=== PATIENT | male | born 1955 | race Caucasian/White ===

== ENCOUNTER 2017-06-25 12:00 | Inpatient (IN) | payer BC, SELFPAY ==
[2017-06-14 15:09] VITALS: BP 139/66; PULSE 86; RESP 18; TEMP 37.3; O2SAT 97; BMI 48.5
[2017-06-14 16:08] LABS: Hematocrit 46.3 % (40-54); Hemoglobin 15.3 g/dl (13.0-16.5); Mean Corpuscular Hgb 29.2 pg (27.0-32.0); Mean Corpuscular Volume 88.4 fL (80-94); Mean Platelet Vol. 10.3 fl (6.2-12.0); Platelet Count 243 K/mm3 (150-450); RBC Distribution Width CV 15.2 % (11.6-14.6); RBC Distribution Width SD 49.3 fl (35.1-43.9); Red Blood Count 5.24 M/mm3 (4.6-6.2); White Blood Count 8.6 K/mm3 (4.4-11.0)
[2017-06-14 16:13] LABS: Scan Indicated on CBC? Y/N NO
[2017-06-14 16:17] LABS: Anion Gap 8 (5-15); BUN 18 mg/dL (7-18); BUN/Creat Ratio 12.9 RATIO (10-20); Calcium,Total 8.8 mg/dL (8.5-10.1); Chloride 101 mmol/L (98-107); Creatinine, Serum 1.39 mg/dL (0.70-1.30); EST Glomerular Filtration Rate 55 mL/min (>60); Est Glom Filt Rate - Afr Amer 67 mL/min (>60); Estimated Creatinine Clearance 58.35 ml/min; Glucose 115 mg/dL (70-110); Potassium 3.9 mmol/L (3.5-5.1); Sodium Level 138 mmol/L (136-145)
[2017-06-25] VITALS (12 sets, daily range): BP systolic 110–169; BP diastolic 67–93; PULSE 62–82; RESP 16–18; TEMP 36.4–36.9; O2SAT 94–97; BMI 48.5; BMI 47.2
[2017-06-25] MEDS: oxyCODONE HCl Cr 10 MG Tablet 20 MG PO (08:15)
[2017-06-25] MEDS: Acetaminophen 500 MG Tablet 1000 MG PO ×3 (08:15→21:57)
[2017-06-25] MEDS: Celecoxib 200 MG Capsule 400 MG PO (08:16)
[2017-06-25] MEDS: Scopolamine 1mg/72hr Patch 1 PATCH TD (12:00)
--- NOTE | 2017-06-25 13:06 | RAD_ITS ---
STUDY: X-RAY - LEFT KNEE REASON FOR EXAM: Male, 62 years old. Postop. TECHNIQUE: 3 view(s) of the knee. COMPARISON: None. FINDINGS: There is a total knee replacement. The prosthetic components are intact and articulate normally with each other. There is no evidence of loosening from the underlying bone. There is no evidence of osseous fracture or destructive osseous pathology. There is air and swelling in the anterior soft tissues with midline skin clips. RAD/Knee 1 or 2 Views IMPRESSION: Status post left TKA. Electronically Signed: Yoav Mcclain DO at 13:21 EST Tel [phone], Service support ,
[2017-06-25] MEDS: Lactated Ringers 1,000 ML 125 ML IV ×2 (13:29→20:12)
--- NOTE | 2017-06-25 14:01 | PCM.OPRPT ---
Report of Operation Date of Procedure: 06/25/17 Pre-Operative Diagnosis: Failure of unicompartmental knee arthroplasty left. Osteoarthritis left knee Post-Operative Diagnosis: Same Surgery/Procedure Performed:: Removal of unicompartmental knee arthroplasty and conversion to total knee replacement left Description of Surgical Findings:: Failure of lateral compartment, periarticular osteophytes and eburnation of bone equipment maintenance superintendent: Jhonny Alonso Type of Anesthesia:: Spinal Anesthesiologist: Elan Manriquez Special Medications: TXA Specimen's removed: Bone and soft tissue, uni-knee compartmental arthroplasty Estimated Blood Loss (mL): 100 Fluids Replaced: See anesthesia report Description of Procedure: Implants: Daniella triathlon size 6 cruciate retaining femur, 6 tibia, 35 x 10 mm patella cemented with Simplex, 9 mm cruciate retaining articulating surface Indications: Melvin had undergone a unicompartmental knee arthroplasty last year. He has never done really well terms of his pain relief and x-rays do reveal he has significant lateral compartmental joint space narrowing and lateral osteoarthritis. He has elected to undergo a revision as above Procedure description: The patient was greeted in the preoperative area. The [ ] knee was then marked with a surgical marker. Patient was then taken to or Suite [address]. They were administered a dose of antibiotics as well as tranexamic acid. Once adequate anesthesia was obtained and airway was secured to placed in supine position on the operating room table. A well-padded tourniquet was placed on the affected extremity. Leg was then prepped and draped in the usual sterile fashion from the knee down. Ioban was used on the skin. Surgical timeout was then performed and confirmed with all present. Six-inch Esmarch was used to examine the limb and tourniquet was then inflated to 250 mmHg. A longitudinal incision was then planned and carried out in the anterior aspect of the knee. The dissection was then carried the length of the incision the extensor mechanism was identified. Standard medial parapatellar arthrotomy was then performed revealing severe eburnation of bone and periarticular osteophytes in the lateral compartment. A unicompartmental knee arthroplasty is noted in the medial aspect. Anterior fat pad was removed for visualization purposes and the anterior medial aspect of the tibia was skeletonized for exposure to the knee. The knee was then flexed the patella was inverted. Opening reamer was then used in the femur approximately 1 cm anterior to the attachment of the PCL. The intramedullary valgus wand was then placed in the femur set at 5? of valgus. The distal femoral cutting jig was then applied to the femur with anticipated resection of approximately 8 mm. The distal femoral cut was then created for the lateral aspect. I did start the medial sided cut this was stopped when the pegs were encountered. The medial femoral component was then removed with flexible osteotomes. The sizing guide was then placed referencing off the posterior condyles and also reference off the epicondylar axis. This was measured and the appropriate size 4-in-1 cutting jig was then applied to the distal femur. Anterior posterior cuts were made followed by the anterior and posterior chamfer cuts. These bony pieces and fragments were removed and placed on the back table. Posterior retractor was then utilized and the tibia was subluxed anteriorly. Extramedullary tibial alignment jig was then applied to the tibia referencing off the medial one third of the tibial tubercle the anterior tibial spine the middle aspect of the tibiotalar joint. Also reference off patient's hamilton slope. The tibial cutting jig was then pinned with anticipated resection of 9 mm mm off of the lateral tibial condyle. Prior to making this cut the medial tibial component was then removed with flexible osteotomes. This cut was made with the oscillating saw. Once this was complete a laminar repairer veneer sheet was utilized in both medial lateral meniscus were removed and a posterior capsular osteophytes were also removed. Posterior capsule release was performed in the posterior capsule as well as the geniculate arteries are treated with the aqua Abby. The tibia was incised and the appropriate sized tibial tray was then pinned. The femoral trial was then placed and the knee was trialed. Full flexion-extension were easily achieved. The knee seemed to balance quite nicely. Any remaining osteophytes were removed at this time. Once this was complete the patella was everted and the Luis Alberto patella reaming device was then utilized the patella was then placed in the appropriate jig and reamer was then used to remove approximately 9 mm of the undersurface of the patella. A soft tissue remaining was in the way was removed and patella trial was then placed listed maintain excellent tracking using the no thumbs technique. The tibial tray at this point was punched to accommodate the fins of the final implant. At this point cement was mixed on the back table. The trial components were removed and the knee was copiously irrigated. Did use a cocktail of injection for postoperative pain control. The final components were then cemented in the standard fashion and excess cement was removed with cement removal tools and patellar clamp is placed in the patella. As the cement had cured in full extension tourniquet was deflated and hemostasis was perfect with Bovie cautery as well as the aqua Manus. Needle is once again trialed with different size polyethylenes to ensure the full range of motion was achieved as well as excellent balancing ligamentously was achieved. The knee was copiously irrigated. Final implant was then inserted locking mechanism was engaged and confirmed to be locked. The arthrotomy was then closed with 5 Ethibond aggravate type fashion interrupted. Subcutaneous tissue was closed with 0 Vicryl and surgical lizandro were placed in the skin. A occlusive silver impregnated dressing was then applied followed by well-padded sterile dressing secured with an Terry wrap. The patient was taken to the PACU in stable condition. No complications known at this time. Postoperatively we will maintain standard total knee postoperative protocol. The use of the physician senior care assistant was integral during this procedure. They assisted with positioning placement of the tourniquet retracting closure and placement of the dressing. The procedure would have been much more difficult without their expertise and assistance - Admit VTE Documentation VTE Present on Admission: Yes VTE Mechan Device Prophylaxis: SCD's, Thigh High EMILY Hose VTE Pharm Prophylaxis ordered?: Yes
[2017-06-25] MEDS: oxyCODONE 5 MG Tablet PO ×2 (15:53→20:11)
[2017-06-25] MEDS: CLARIFY ORDER 1 EACH NOTE (16:15)
[2017-06-25] MEDS: Gabapentin 600 MG Tablet PO (17:50)
[2017-06-25] MEDS: Cefazolin 1 GM/50 ML BAG IV (17:51)
[2017-06-25] MEDS: Senna/Docusate Sodium 1 Tablet 2 TABLET PO (21:58)
[2017-06-26] MEDS: Cefazolin 1 GM/50 ML BAG IV (02:26)
[2017-06-26] MEDS: oxyCODONE 5 MG Tablet PO ×4 (02:32→17:56)
[2017-06-26] MEDS: Ketorolac 15 MG/ML Vial IV ×2 (02:32→17:57)
[2017-06-26 02:45] VITALS: BP 135/69; PULSE 100; RESP 20; TEMP 36.8; O2SAT 97
[2017-06-26] MEDS: Acetaminophen 500 MG Tablet 1000 MG PO ×3 (07:09→22:01)
--- NOTE | 2017-06-26 07:57 | PCM.PN.ORT ---
Subjective: Patient sitting at bedside eating breakfast, pain well-managed. Patient has no other complaints. Patient denies chest pain, shortness of breath, calf pain, nausea vomiting. Objective: Dressing is clean dry intact. Vital signs labs within normal limits. Patient is afebrile, neurovascular is intact. Negative signs and symptoms of DVT. No respiratory distress - Physical Exam General: Alert, Oriented x3, Cooperative HEENT: PERRLA Oral: Moist Mucosa Neurological: Cranial nerves II-XII grossly intact Psych/Mental Status: Normal Affect, Alert and oriented to time, place, person, mood and affect Vital Signs Temp Pulse Resp BP Pulse Ox 98.2 F 100 20 H 135/69 H 97 06/26/17 02:45 06/26/17 02:45 06/26/17 02:45 06/26/17 02:45 06/26/17 02:45 Oxygen Delivery Method Room Air Weight: 153.5 kg Body Mass Index (BMI) 47.2 Intake and Output for Last 24 Hours 06/24/17 06/25/17 06/26/17 23:59 23:59 23:59 Intake Total 2655 / 2655 2057 Balance 2655 / 2655 2057 Assessment/Plan Status post revision unicompartmental knee to a left total knee Plan 1. Continue all pain medications as prescribed 2. Begin physical therapy today, weight-bear as tolerated with walker. 3. Continue preop Xarelto, and aspirin 85 mg as prescribed for postop DVT prophylaxis 4. Encourage incentive spirometry 5. Possible discharge home tomorrow
[2017-06-26 08:00] VITALS: BP 147/86; PULSE 98; RESP 18; TEMP 37.8; O2SAT 95
[2017-06-26] MEDS: Gabapentin 600 MG Tablet PO ×3 (08:02→17:49)
[2017-06-26] MEDS: Folic Acid 1 MG Tablet PO (08:02)
[2017-06-26] MEDS: Aspirin 81 MG TAB.CHEW PO (08:02)
[2017-06-26] MEDS: Multivitamins,Therapeutic Tablet 1 TABLET PO (08:02)
[2017-06-26] MEDS: hydroCHLOROthiazide 25 MG Tablet PO (09:50)
[2017-06-26] MEDS: Famotidine 20 MG Tablet PO (09:51)
[2017-06-26] MEDS: amLODIPine 5 MG Tablet PO (09:51)
[2017-06-26] MEDS: Senna/Docusate Sodium 1 Tablet 2 TABLET PO ×2 (09:51→22:01)
[2017-06-26] MEDS: Lisinopril 20 MG Tablet PO (09:51)
[2017-06-26 09:55] VITALS: PULSE 88
[2017-06-26] MEDS: Rivaroxaban 20 MG Tablet PO (10:02)
[2017-06-26 14:00] VITALS: BP 122/67; PULSE 97; RESP 18; TEMP 38.2; O2SAT 95
--- NOTE | 2017-06-26 16:20 | CASEMGMT ---
IGLESIA BAILON Face to Face with patient for initial transition planning/care coordination assessment. RN UVALDO introduced self and role at [facility]. Patient lying in bed, alert and oriented. Patient willing to participate in assessment and is able to answer all questions appropriately. Care providers, pharmacy, and demographics verified. See link attached. Patient wishes to discharge home with outpatient at [facility]. Patient states that his will be providing transporation. Patient states he has no further needs or concerns at this time. CM to follow for discharge planning needs that may arise. Disposition Plan: Patient to discharge home with outpatient therapy, family support, and follow-up plans in place.
[2017-06-26] MEDS: 0.9% NaCl Peripheral Flush Adult/Peds IV (17:56)
[2017-06-26 21:48] VITALS: BP 125/55; PULSE 80; RESP 16; TEMP 36.8; O2SAT 93
[2017-06-27 02:41] VITALS: BP 115/47; PULSE 72; RESP 12; TEMP 36.9; O2SAT 96
[2017-06-27] MEDS: Acetaminophen 500 MG Tablet 1000 MG PO ×2 (05:48→13:16)
[2017-06-27 09:16] VITALS: BP 153/80; PULSE 95; RESP 18; TEMP 36.8; O2SAT 98
[2017-06-27] MEDS: Multivitamins,Therapeutic Tablet 1 TABLET PO (09:18)
[2017-06-27] MEDS: Senna/Docusate Sodium 1 Tablet 2 TABLET PO (09:18)
[2017-06-27] MEDS: hydroCHLOROthiazide 25 MG Tablet PO (09:19)
[2017-06-27] MEDS: Folic Acid 1 MG Tablet PO (09:19)
[2017-06-27] MEDS: Aspirin 81 MG TAB.CHEW PO (09:19)
[2017-06-27] MEDS: Gabapentin 600 MG Tablet PO ×2 (09:19→11:15)
[2017-06-27] MEDS: Rivaroxaban 20 MG Tablet PO (09:20)
[2017-06-27] MEDS: Lisinopril 20 MG Tablet PO (09:20)
[2017-06-27] MEDS: amLODIPine 5 MG Tablet PO (09:20)
[2017-06-27] MEDS: Famotidine 20 MG Tablet PO (09:20)
--- NOTE | 2017-06-27 12:50 | PCM.PN.ORT ---
Subjective: Patient sitting with at lunch. Pain well managed. No other complaints. Ready for discharge home. Denies chest pain, shortness breath, calf pain, nausea vomiting. Objective: Dressing clean dry intact, vital signs labs within normal limits. Patient afebrile, neurovascular intact. Negative signs symptoms of DVT. - Physical Exam General: Alert, Oriented x3, Cooperative Psych/Mental Status: Alert and oriented to time, place, person, mood and affect Vital Signs Temp Pulse Resp BP Pulse Ox 98.3 F 95 18 153/80 H 98 06/27/17 09:16 06/27/17 09:16 06/27/17 09:16 06/27/17 09:16 06/27/17 09:16 Oxygen Delivery Method Room Air Weight: 153.5 kg Body Mass Index (BMI) 47.2 Intake and Output for Last 24 Hours 06/25/17 06/26/17 06/27/17 23:59 23:59 23:59 Intake Total 2655 / 2655 2057 400 / 400 Output Total 200 / 200 Balance 2655 / 2655 2057 200 / 200 Assessment/Plan Status post revision unicompartmental knee to a left total knee Plan 1. Continue all pain medications as prescribed 2. Continue physical therapy outpatient, weight-bear as tolerated with walker. 3. Continue preop Xarelto, and aspirin 85 mg as prescribed for postop DVT prophylaxis 4. Follow-up as scheduled, see pink sheet 5. Discharge home today
--- NOTE | 2017-06-27 13:00 | PCM.DC.TKR ---
Discharge Diet: No Restrictions Discharge Activity: May Not Drive, May Shower, Use Walker May shower in (days): 2 Ice area for (Minutes): 20 - each hour while awake. Weight Bearing Status: Weight bearing as tolerated Elevate: Operative Extremity Additional Activity Instructions:: Wear elastic stockings for 2 weeks after your surgery. Allergies/Adverse Reactions: Allergies No Known Allergies Allergy (Verified 06/14/17 14:52) Medications to take at Discharge Amlodipine Besylate [Norvasc] 5 mg PO DAILY 06/14/17 Aspirin [Aspir-Low] 81 mg PO DAILY 06/14/17 Dronedarone Hydrochloride [Multaq] 400 mg PO BID 06/14/17 Folic Acid 1 mg PO DAILY 06/14/17 Gabapentin [Neurontin] 600 mg PO TIDCM 06/14/17 Lisinopril/Hydrochlorothiazide [Zestoretic 20-25 mg Tablet] 1 each PO DAILY 06/14/17 Meloxicam [Mobic] 15 mg PO DAILY 06/14/17 Methotrexate 10 tab PO MO 06/14/17 Multivitamin [Multiple Vitamins] 1 each PO DAILY 06/14/17 Rivaroxaban [Xarelto] 20 mg PO DAILY 06/14/17 Testosterone [Androgel] 2 units TD DAILY 06/14/17 Acetaminophen [Tylenol] 1,000 mg PO Q8 #90 tablet 06/27/17 MorphINE [Ms Contin] 15 mg PO BID 15 Days #30 tab 06/27/17 Oxycodone [Oxyir] 5 - 10 mg PO Q6H PRN PRN 10 Days #100 tab 06/27/17 The following prescriptions were given: Oxycodone [Oxyir] 5 - 10 mg PO Q6H PRN PRN 10 Days #100 tab PRN Reason: Mod-Severe Pain (4-10/10) MorphINE [Ms Contin] 15 mg PO BID 15 Days #30 tab Primary Care Physician: Chely Whittington,Out of [Primary Care Provider] -
[2017-06-27 13:41] VITALS: BP 162/78; PULSE 99; RESP 18; TEMP 36.9; O2SAT 98
== END 2017-06-27 13:52 | disposition home or self-care (01) | DRG 468 ==
PROVIDERS: Admitting Provider Orthopaedic Surgery; Visit Provider Orthopaedic Surgery
PROC: 0SPD0JZ Removal of Synthetic Substitute from Left Knee Joint, Open Approach (ICD-10-PCS; principal; 2017-06-25 09:50)
DX: T84.093A Other mechanical complication of internal left knee prosthesis, initial encounter (principal); I10 Essential (primary) hypertension; M17.12 Unilateral primary osteoarthritis, left knee; M25.762 Osteophyte, left knee; Z96.652 Presence of left artificial knee joint; Z87.891 Personal history of nicotine dependence
CPT/HCPCS: 73560; 80048; 85027; 87077; 87081; 93005; 97110; 97116; 97162; 97165; 97530; 97535; J7120; A4216; J2405